=== PATIENT | female | born 1995 | race Hispanic/Latino ===

== ENCOUNTER 2016-03-10 11:14 | Inpatient (IN) | payer OTHER ==
[~2016-03-10] VITALS: Ht 149.9 cm; Wt 64.9 kg
[~2016-03-10 11:14] MED LIST: HYDR-4003 PO; IBUP800T28 PO
[2016-03-10] MEDS ORDERED: Lactated Ringer's 1,000 ML IV PRN (13:38)
[2016-03-10] MEDS ORDERED: Sodium Chloride LOK Flush 10 mL Syringe IVFLUSH PRN (13:40)
[2016-03-10] MEDS ORDERED: Oxytocin 10 Unit/mL Inj IM PRN ×2 (13:40→20:45)
[2016-03-10] MEDS ORDERED: Carboprost 250 mCg/mL Inj IM PRN ×2 (13:40→20:45)
[2016-03-10] MEDS ORDERED: Ondansetron 2 mg/mL 2 mL Inj IVPUSH PRN ×2 (13:40→14:35)
[2016-03-10] MEDS ORDERED: Penicillin G K Inj 5,000,000 UNITS in Dextrose 5% Minibag Plus 100 ML IV ONE (13:40)
[2016-03-10] MEDS ORDERED: Methylergonovine 0.2 mg/mL Inj IM PRN ×2 (13:40→20:45)
[2016-03-10] MEDS ORDERED: Hemorrhage Kit, Post Partum XX ONE ×2 (13:40→20:45)
[2016-03-10] MEDS ORDERED: Oxytocin 30 Units/500 mL LR 30 UNITS in IV Premix 1 EACH IV PRN ×2 (13:40→20:45)
[2016-03-10] MEDS ORDERED: fentaNYL-PF 50 mCg/mL 2 mL Inj IVPUSH PRN (13:40)
[2016-03-10] MEDS ORDERED: 0.9% Sodium Chloride 100 ML IV ONE (14:10)
[2016-03-10 14:14] LABS: Mean Corpuscular Hemoglobin 28.5 pg (27.0-35.0); Mean Corpuscular Volume 88.4 fL (81-100)
[2016-03-10] MEDS ORDERED: Lactated Ringer's 500 ML IV ONE (14:31)
[2016-03-10] MEDS ORDERED: fentaNYL 2 mCg/mL-Bupiv 0.125% 100 ML EPIDURAL SCH (14:35)
[2016-03-10] MEDS ORDERED: Atropine 1 mg/10 mL (Code) Syringe IVPUSH PRN (14:35)
[2016-03-10] MEDS ORDERED: EPHEDrine/NS 5 mg/mL 5 mL Syringe ONE (14:50)
[2016-03-10] MEDS: EPHEDrine Sulfate 50 mg/mL Inj IVPUSH PRN ×4 (14:58→16:32)
[2016-03-10] MEDS ORDERED: Sodium Chloride LOK Flush 10 mL Syringe IVFLUSH SCH (16:30)
[2016-03-10] MEDS ORDERED: PREN1TAB87 PO (16:36)
[2016-03-10] MEDS: Lactated Ringer's 1,000 ML IV SCH ×2 (17:59→18:00)
[2016-03-10] MEDS ORDERED: Phenylephrine/NS 100 mCg/mL 10 mL Syringe IVPUSH PRN (19:55)
[2016-03-10] MEDS ORDERED: Penicillin G K Inj 3,000,000 UNITS in IV Premix 1 EACH IV SCH (20:30)
[2016-03-10] MEDS ORDERED: Lactated Ringer's 1,000 ML IV SCH (20:41)
[2016-03-10] MEDS ORDERED: Witch Hazel-Glycerin Pads TOPICAL PRN (20:45)
[2016-03-10] MEDS ORDERED: Benzocaine (Dermoplast) 20% 60 Gm Spray TOPICAL PRN (20:45)
[2016-03-10] MEDS ORDERED: LANOlin HPA 7 Gm Ointment TOPICAL PRN (20:45)
--- NOTE | 2016-03-10 21:50 | HP ---
[address] [address] HISTORY AND PHYSICAL PATIENT: STAR FERGUSON : 1995 MR#: [id number] ADMIT: 03/10/2016 JOB ID: [id number] CHIEF COMPLAINT: Increasing contractions at term. HISTORY OF PRESENT ILLNESS: A 21-year-old, 2, para 1, with an EDC of March 10 presents on her due date with increased contractions. She was initially found to be 2 cm with cervical change after she had walked around for a few hours. She has had no leakage of fluid. She is GBS positive. She would like an epidural. LABS: Blood type A positive. Rubella immune. Serology nonreactive. Hepatitis B surface antigen and HIV test negative at the onset of . She is varicella immune. An A1c was 5.3 at the beginning of and gonorrhea and Chlamydia cultures were negative at that time. Urine culture showed mixed delmis, 10.000 to 25,000. Antibody screen was negative at 18 weeks. A quad screen was negative in October of this year. A 30 week glucose tolerance test showed a fasting of 79, a 1 hour of 99, a 2 hour of 121. She is GBS positive screened February 12, 2016. SOCIAL HISTORY: She is a [id number] mother. . Nonsmoker. Drinks no alcohol while . ALLERGIES: None known. CURRENT MEDICATIONS: 1. vitamins 1 tablet daily. 2. Ferrous sulfate 325 mg b.i.d. HEALTH CARE MAINTENANCE: She has had a flu and a Tdap vaccine this . FAMILY HISTORY: Noncontributory. PAST GYNECOLOGIC HISTORY: She has had one prior delivery at term, 6 pounds 7 ounce female, uncomplicated with an epidural. CURRENT ISSUES: 1. Mild anemia. 2. GBS positive. PHYSICAL EXAMINATION: Please see nursing notes for admitting vitals. She is noted to be hypotensive since receiving an epidural, several doses of reversal medication have been provided. Last nursing exam just before her epidural was 4.5 cm dilated, 80% effaced, -2 station. heart tracing shows a baseline in the 160s to 170s with accelerations, category 1. ASSESSMENT: 1. Gravid at term. 2. Group B strep positive. 3. Entering active labor. 4. Hypotension with her epidural. 5. Mild anemia, however, her hematocrit here returns at 38.7, hemoglobin 12.5. PLAN: Anesthesia has been contacted to address her low blood pressure after epidural. Otherwise, expectant management. She has received antibiotics for her GBS positive status, and I will attempt to avoid rupture of membranes unless clinically required until 4 hours have passed.
--- NOTE | 2016-03-10 22:00 | OP ---
[address] [address] OPERATIVE REPORT PATIENT: STAR FERGUSON : 1995 MR#: [id number] ADMIT: 03/10/2016 JOB ID: [id number] DELIVERY NOTE Date of delivery: 03/10/2016 Delivery position: DANYA. scores: 9 and 9 Delivery weight: 3249 grams (7 pounds 3 ounces), viable male Umbilical cord: Three-vessel cord, normal length and appearance. Placenta: Normal appearing central cord insertion. No evidence of retained fragments. EBL: 250 cc. Anesthesia: Epidural. Lacerations: None. Complications: None significant. Patient felt an increased urge to push and was found to be completely dilated. She pushed for just a little over 20 minutes. There were some heart rate decelerations down to the 80s to 90s with recovery. Pediatrics was contacted to be present at delivery, but before they could arrive these resolved and the infant delivered. There was continued variability and I felt it safe to proceed toward vaginal delivery. Head delivered in DANYA position. No nuchal cord was identified. Body was slow to deliver but there was no shoulder dystocia. was handed off to mother and nursing for additional stimulation and immediately cried with good color and tone. Cord was clamped after two minute delay. Cord blood collected and sent. Placenta delivered spontaneously with gentle traction on the cord. IV oxytocin was instituted afterwards. Bleeding slowed rapidly with fundal massage. Perineum was inspected and showed no tears. Mother plans to breast-feed. She was GBS positive, but fully treated with two doses of penicillin. MTDD
[2016-03-10] MEDS: HYDROcodone-APAP 5-325 mg Tablet PO PRN (22:09)
[2016-03-11] MEDS: HYDROcodone-APAP 5-325 mg Tablet PO PRN ×2 (03:53→10:48)
[2016-03-11 06:34] LABS: Mean Corpuscular Hemoglobin 29.2 pg (27.0-35.0); Mean Corpuscular Volume 88.5 fL (81-100)
--- NOTE | 2016-03-11 14:33 | PCM.ANEP1 ---
Post Anesthesia Phase 1 PACU Phase 1 Assessment Anesthetic Administered: Epidural KERNS's with Equal Strength: Yes Pain: No Nausea or Vomiting: No Lungs: Clear to Auscultation, Normal Air Movement Dermatome Level: Full Sensation Bora Tolliver MD Mar 11, 2016 14:33
--- NOTE | 2016-03-11 14:33 | PCM.HPANE ---
Patient Data Surgeon Admitting Provider:Tony Fairbanks MD Attending Provider:Tony Fairbanks MD Primary Care Physician:Tony Fairbanks MD Other Provider:Luly De La Cruzingham Anesthesia Reason for Visit Active Labor ACTIVE LABOR Ht/WT & BMI Body Mass Index Allergies Coded Allergies: No Known Allergies (Unverified , 12/17/11) Past Anesthesia History Anesthesia History: Denies:: Abnormal Airway, Difficult Intubation Diabetes History Hx Diabetes?: No MRSA MRSA: No Medications Hypertension Medication: No Home Meds Incl Beta Manuel: No Reported Medications Vit W-Ca,Fe,FA(<1 mg) ( Vitamins)1 Each Tablet1 Each PO DAILY 03/10/16 Discontinued Scripts Hydrocodone-Acetaminophen 5-325 mg 1 Each Tablet1-2 Each PO Q4 PRN For Pain #20 Ref 2 Prov:Tony Fairbanks MD 08/27/13 Ibuprofen 800 Mg [id number] Mg PO Q8 PRN For Pain #40 Ref 2 Prov:Tony Fairbanks MD 08/27/13 History History of ENT Problems?: No Hx of Heart Problems?: No Cardiovascular History: Denies:: Congestive Heart Failure Hypertension Hx of Respiratory Problem?: No Respiratory History: Denies:: Tuberculosis Hx Neurologic Problems?: No Hx of GI Problems?: No Hx of Problems?: No Female Hx: Positive for:: Currently Hx Musculoskeletal Problems?: No Hx of Psycho/Social Problems?: No Hx Surgeries?: Yes (tonsillectomy) Hx Diabetes: No Hx Alcohol Use: NoHx Substance Use: No Smoking Status: Never Smoker Stop/Bang Treated for Sleep Apnea?: No Do You Have a CPAP Machine?: No MARTÍN Risk Assessment: Low Risk, <3 Yes Risk Assessment Category Category 1A: Patient has history of documented sleep apnea, and HAS NOT received any narcotic, sedative or anesthesia administration during this stay. Category 1B: Patient has history of documented sleep apnea, and HAS received any narcotic , sedative or anesthesia administration during this stay Category 2: Patient has SUSPECTED Obstructive Sleep Apnea, and HAS received any narcotic , sedative or anesthesia administration during this stay. Category 3: Patient has SUSPECTED Obstructive Sleep Apnea and HAS NOT received narcotic, sedative or anesthesia administration during this stay. Category 4: Outpatient in Procedural Areas with known sleep apnea or who screen positive for High Risk via the STOP/BANG questionnaire. Exam Exam General Appearance: Alert, Oriented X3, Cooperative, No Acute Distress HEENT/AIRWAY: MP 2 Lungs: Clear to Auscultation, Normal Air Movement Heart: Exam Unremarkable, Regular Rate/Rhythm, No Murmurs/Rubs/Gallops Meds/Labs/Diagnostics Admission Meds Current Medications Penicillin G Potassium/ Dextrose/Premix (Pfizerpen Inj/ IV Premix) 50 ml @ 100 mls/hr Q4 IV Last administered on 03/10/16 17:56; Start 03/10/16 at 20:30; Stop 03/10/16 at 20:45; Status DC Docusate Sodium (Colace) 100 mg BID PO Last administered on 03/11/16 09:35; Start 03/11/16 at 08:30 Labs Test 03/11/16 06:18 White Blood Count 16.0th/mm3 (3.8-10.1) Red Blood Count 3.66mil/mm3 (3.90-5.20) Hemoglobin 10.7g/dL (12.0-15.6) Hematocrit 32.4% (35.0-46.0) Mean Corpuscular Volume 88.5fL (81-100) Mean Corpuscular Hemoglobin 29.2pg (27.0-35.0) Mean Corpuscular Hemoglobin Concent 33.0% (32.0-37.0) Red Cell Distribution Width 13.7% (12.3-15.4) Platelet Count 183bil/L (150-400) Plan Impression Patient chart reviewed, patient interviewed and anesthestic plan with risks, benefits, and alternatives discussed, and informed consent obtained. ASA Physical Status: ASA1 Normal Healthy Anesthetic Plan: Epidural Bene/Risks/Altern/Consents: Yes HP Complete Prior to Induction: Yes Bora Tolliver MD Mar 11, 2016 14:33
--- NOTE | 2016-03-11 14:34 | PCM.ANEP2 ---
Post Anesthesia Evaluation ASA/CMS Post Anesthesia VS in Patient's Normal Range?: Yes Resp Stable; Airway Patent?: Yes CV Function & Hydration Stable: Yes Mental Status Recovered?: Yes Pain control Satisfactory?: Yes N/V Control Satisfactory?: Yes Bora Tolliver MD Mar 11, 2016 14:34
--- NOTE | 2016-03-11 19:17 | PCM.DIOB ---
Obstetrical Disch Instruction Date of Service: Mar 11, 2016 Dates of Hospitalization Date of Hospital Admission Mar 10, 2016 at 13:25 Providers Admitting Physician: Tony Fairbanks MD Primary Care Physician: Tony Fairbanks MD Attending Physician: Tony Fairbanks MD Discharge Diagnosis Problems: (1) Born by normal vaginal delivery Status: Acute ICD Code: O80 Diet Discharge Diet: No restrictions Activity Discharge Activity-General: No restrictions Dressing and Incisional Care Hygiene: May shower Follow Up Plan Follow-up Provider (F9): oTny Fairbanks MD Follow-up appointment: Weeks (6) Call your provider for: Fever or Chills, Shortness of breath, Heavy vaginal bleeding, Excessive constipation, Red painful breasts Tony Fairbanks MD Mar 11, 2016 19:17
[2016-03-11] MEDS ORDERED: IBUP-1827 PO (19:19)
[2016-03-11] MEDS ORDERED: HYDR-4003 PO (19:19)
[2016-03-11] MEDS ORDERED: DOCU-41 PO (19:19)
--- NOTE | 2016-03-12 00:14 | DIS ---
[address] [address] DISCHARGE SUMMARY PATIENT: STAR FERGUSON : 1995 MR#: [id number] ADMIT: 03/10/2016 JOB ID: [id number] DIS: 03/11/2016 DISCHARGE DIAGNOSES: 1. Spontaneous vaginal delivery at term to a 3249 g viable male (7 pounds 3 ounces.) 2. Group-B Strep positive, treated. 3. History of mild anemia. 4. Hypotension with her epidural, resolved. DISCHARGE MEDICATIONS: 1. vitamin, 1 tablet daily. 2. Ibuprofen 600 mg q.6 h. p.r.n. mild pain. 3. Hydrocodone/acetaminophen 5/325 mg, 1-2 tablets q.4 h. p.r.n. moderate pain. 4. Docusate sodium 100 mg p.o. b.i.d. p.r.n. constipation. ACTIVITY: Ad jhoan. DIET: Ad jhoan. DISCHARGE INSTRUCTIONS: 1. Follow up with Dr. Fairbanks in six weeks. 2. Call for increased bleeding, red painful breast, excess constipation or other issues. HOSPITAL COURSE: The patient is a 21-year-old, now 2, para 2, who presented on her due date in active labor. She was GBS positive, treated fully with IV penicillin for two doses. She was given epidural with some associated hypotension, treated anesthesia. The patient went on to have a rapid uncomplicated delivery to a viable male, in DANYA position. She sustained no lacerations. , the patient is caring for her infant well, breast-feeding without difficulty and ambulating without issue. She reports normal voids and stools. She would like to go home tonight. She will follow up in six weeks, sooner if problems. GILA
== END 2016-03-11 20:47 | disposition home or self-care (01) | DRG 560 ==
LOC: FBCO 11:14 → FBC 13:25
PROVIDERS: ADMIT Family Medicine; ATTEND Family Medicine
PROC: 10E0XZZ Delivery of Products of Conception, External Approach (ICD-10-PCS; principal; 2016-03-10)
DX: O99.824 Streptococcus B carrier state complicating childbirth (principal); O99.02 Anemia complicating childbirth; Z37.0 Single live birth; Z3A.40 40 weeks gestation of pregnancy; D64.9 Anemia, unspecified